=== PATIENT | female | born 1995 ===

== ENCOUNTER 2022-03-03 12:26 | Outpatient (CLI) | payer OTHER | END 2022-03-03 15:00 | disposition home or self-care (01) | LOC: LAB 12:26 | PROVIDERS: ATTEND Orthopaedic Surgery | DX: B19.9 Unspecified viral hepatitis without hepatic coma (principal); B01.9 Varicella without complication ==

== ENCOUNTER 2022-10-27 09:28 | Outpatient (CLI) | payer OTHER | END 2022-10-27 09:40 | disposition home or self-care (01) | LOC: PPH VACUNA 09:28 | PROVIDERS: ATTEND Emergency Medicine Pediatric Emergency Medicine | DX: Z23 Encounter for immunization (principal) ==

== ENCOUNTER 2024-04-08 09:25 | Inpatient (IN) | payer OTHER ==
[~2024-04-08] VITALS: Ht 167.6 cm; Wt 108.9 kg
[2024-04-11] MEDS ORDERED: AMPICILLIN SODIUM 2,000 MG VIAL IV STA (05:47)
[2024-04-11] MEDS ORDERED: RINGERS SOLUTION,LACTATED 1,000 ML IV SCH (06:00)
[2024-04-11 06:45] LABS: PH,URINE 5.5 (5.0-8.0); URINE APPEARANCE Cloudy; URINE BILIRRUBIN Negative (NEGATIVE); URINE BLOOD Negative; URINE COLOR Yellow; URINE GLUCOSE Negative (NEGATIVE); URINE LEUKOCYTE Moderate; URINE NITRATE Negative; URINE PROTEIN Negative (NEGATIVE); URINE UROBILINOGEN 0.2 E.U./dl
[2024-04-11] MEDS ORDERED: OXYTOCIN 500 ML IV SCH (06:45)
[2024-04-11 06:51] LABS: URINE BACTERIA 7921.4 uL (0.0-1933); URINE EPITHELIAL CELLS 95.2 uL (0.0-38.8); URINE RBC 7.4 uL (0.0-20.8); URINE WBC 348.1 uL (0.0-23.2)
[2024-04-11] MEDS ORDERED: PRENATABS RX T1 EACH PO (07:00)
[2024-04-11 07:17] LABS: HEMATOCRIT 37.8 % (36.0-45.00); HEMOGLOBIN 12.9 g/dL (12.0-15.00); MEAN CELL VOLUME 88.1 fL (80.00-100.00); MEAN CORPUSCULAR HEMOGLOBIN 30.1 pg (27.00-32.0); MEAN CORPUSCULAR HGB CONC 34.2 g/dl (32.0-36.0); RED BLOOD COUNT 4.29 M/uL (4.00-6.00); RED CELL DISTRIBUTION WIDTH 15.1 % (11.5-14.5)
[2024-04-11 07:19] LABS: INR < 0.93; PARTIAL THROMBOPLASTIN TIME 25.7 SECONDS (22.0-34.0); PROTHROMBIN TIME 9.6 SECONDS (9.0-11.5)
[2024-04-11 07:21] LABS: PLATELET COUNT 119 K/uL (150-450)
[2024-04-11 07:36] LABS: ALBUMIN 2.9 gm/dL (3.4-5.0); BILIRUBIN TOTAL 0.35 mg/dL (0.3-1.2); CALCIUM 9.2 mg/dL (8.5-10.1); CREATININE SERUM 0.77 mg/dL (0.55-1.02); GFR 89.26; GLOBULINA 3.3 G/DL (2.4-3.5); POTASSIUM 4.01 mEq/L (3.5-5.1); TOTAL PROTEIN 6.2 gm/dL (6.4-8.2)
[2024-04-11] MEDS ORDERED: AMPICILLIN SODIUM 1,000 MG VIAL IV SCH (09:00)
[2024-04-11] MEDS ORDERED: OXYTOCIN 1,000 ML IV SCH (14:30)
[2024-04-11] MEDS ORDERED: CHLORHEXIDINE GLUCONATE 120 ML BOTTLE TOP ONE (14:30)
[2024-04-11] MEDS ORDERED: ERYTHROMYCIN BASE 1 GM TUBE OP ONE (14:30)
[2024-04-11] MEDS ORDERED: OxyCODONE HCL/APAP UD (PERCOCET) PO PRN (15:15)
[2024-04-11] MEDS ORDERED: ACETAMINOPHEN 500 MG GEL..CAP PO PRN (15:15)
[2024-04-12] MEDS ORDERED: CEFAZOLIN SODIUM 1,000 MG VIAL IV SCH (12:15)
[2024-04-13 01:59] LABS: HEMATOCRIT 33.6 % (36.0-45.00); HEMOGLOBIN 11.3 g/dL (12.0-15.00); MEAN CELL VOLUME 89.7 fL (80.00-100.00); MEAN CORPUSCULAR HEMOGLOBIN 30.1 pg (27.00-32.0); MEAN CORPUSCULAR HGB CONC 33.5 g/dl (32.0-36.0); RED BLOOD COUNT 3.74 M/uL (4.00-6.00); RED CELL DISTRIBUTION WIDTH 15.3 % (11.5-14.5)
[2024-04-13 02:00] LABS: PLATELET COUNT 112 K/uL (150-450)
== END 2024-04-13 16:30 | disposition home or self-care (01) | DRG 798 ==
LOC: LDR 04-11 05:43 → OB/GYN 04-11 05:43 → LDR 04-11 06:40 → OB/GYN 04-11 14:31 → LDR 04-11 14:34 → OB/GYN 04-11 14:36
PROVIDERS: ADMIT Specialist; ATTEND Specialist
PROC: 10E0XZZ Delivery of Products of Conception, External Approach (ICD-10-PCS; principal; 2024-04-11)
PROC: 4A1HXCZ Monitoring of Products of Conception, Cardiac Rate, External Approach (ICD-10-PCS; 2024-04-11)
PROC: 3E033VJ Introduction of Other Hormone into Peripheral Vein, Percutaneous Approach (ICD-10-PCS; 2024-04-11)
PROC: 0UB70ZZ Excision of Bilateral Fallopian Tubes, Open Approach (ICD-10-PCS; 2024-04-12)
DX: O99.824 Streptococcus B carrier state complicating childbirth (principal); Z37.0 Single live birth; Z30.2 Encounter for sterilization; Z3A.39 39 weeks gestation of pregnancy; Z20.822 Contact with and (suspected) exposure to COVID-19